=== PATIENT | male | born 1950 | race Caucasian/White ===

== ENCOUNTER → 2018-10-27 | Outpatient (CLI) | payer MEDICARE ==
[~2018-10-27] MED LIST: CATHETER FLUSH 10 ML SYR IV PRN; HOLD METFORMIN - RECEIVED CONTRAST 20 ML VIAL IV SCH; IOHEXOL 350 MG/ML 100 ML (OMNIPAQUE 350) VIAL IV ONE; NS 100 ML (IVPB) BAG IV ONE
--- NOTE | 2018-10-27 11:45 | Diagnostic Imaging Report ---
PROCEDURE: CT abdomen and pelvis with contrast. TECHNIQUE: Multiple contiguous axial images were obtained through the abdomen and pelvis after administration of intravenous contrast. Auto Exposure Controls were utilized during the CT exam to meet ALARA standards for radiation dose reduction. INDICATION: Abdominal pain, worsening in severity over the past month. Previous appendectomy. COMPARISON: No prior examinations are available for comparison. FINDINGS: The gallbladder is mildly distended measuring 9 cm x 4.6 cm. Its wall appears at least mildly thickened and hyperenhancing. There is a small amount of air within the lumen of the anti-dependent gallbladder at the level of its fundus. No air within the gallbladder wall. There is mild intra and extrahepatic bile duct dilatation. The common hepatic duct measures 11 mm maximally and the common bile duct is 10 mm maximally. No intraductal radiodense stone is found and the common duct caliber shows no abrupt transition zone. The pancreas and its duct appear unremarkable. There is some relative hyperdensity in the liver peripheral to the gallbladder which could be from reactive hyperemia in the setting of an inflamed gallbladder or be merely focal sparing of fatty infiltration in this patient with features likely owing to mild fatty infiltration of the liver. No radiodense stone within the gallbladder lumen or the biliary ducts is found. There is no evidence for ileus or bowel obstruction. There are innumerable bilateral renal cortical cysts without hydronephrosis. The adrenals are negative. There is no ascites, abscess, hematoma, or other fluid collection. The prostate, seminal vesicles, and urinary bladder are unremarkable. The appendix is absent. There is no diverticulitis. No basilar pleural fluid with the lower lobes (where visualized) clear. The osseous structures are unremarkable. IMPRESSION: 1. Abnormal gallbladder mildly distended with intraluminal air, mucosal hyperemia, and hyperenhancement. Acute cholecystitis could not be excluded. No visualized radiodense stone. Mild intra and extrahepatic biliary dilatation with normal pancreas. Often gallstones can be visualized sonographically that are imperceptible at CT. A gallbladder ultrasound is recommended as further evaluation. Pending the results of that exam and clinical correlation, MRCP may also prove of benefit. 2. Renal cysts and previous appendectomy with no ileus or bowel obstruction. 3. Not mentioned above is mild ectasia of the infrarenal aorta at 2.4 cm. No pawan aneurysm, however. Consider annual sonographic surveillance of the aorta to exclude progressive dilatation. 3. No other significant finding. Dictated by: Dictated on workstation # [id number]
== END ==
LOC: RAD FS 09:01
PROVIDERS: ATTEND Nurse Practitioner Family
DX: N28.1 Cyst of kidney, acquired (principal); I77.819 Aortic ectasia, unspecified site; K73.8 Other chronic hepatitis, not elsewhere classified; K82.8 Other specified diseases of gallbladder; Z90.49 Acquired absence of other specified parts of digestive tract
CPT/HCPCS: 74177